=== PATIENT | male | born 2000 | race Caucasian/White ===

== ENCOUNTER 2021-08-20 15:11 | Emergency (ER) | payer OTHER ==
[~2021-08-20] VITALS: Ht 188 cm; Wt 65.9 kg
[2021-08-20 15:25] VITALS: TEMP 99
[2021-08-20 15:50] LABS: COLLECTION METHOD CLEAN CATCH
[2021-08-20 16:00] LABS: MUCOUS Present (NOT PRESENT); PH 6 (5-8); SQUAMOUS EPITHELIAL 0-2 /hpf (0-10); URINE APPEARANCE Clear (CLEAR/HAZY); URINE BACTERIA Rare /hpf (NONE SEEN); URINE BILIRUBIN Negative (NEGATIVE); URINE BLOOD Negative (NEGATIVE); URINE COLOR Yellow (YELLOW); URINE GLUCOSE Negative (NEGATIVE); URINE KETONE Negative (NEGATIVE); URINE LEUKOCYTE ESTERASE Negative (NEGATIVE); URINE NITRATE Negative (NEGATIVE); URINE PROTEIN(semi-quant) Negative (NEGATIVE); URINE RBC 0-2 /hpf (0-2); URINE UROBILINOGEN Negative (NEGATIVE)
[2021-08-20] MEDS ORDERED: DOXYCYCLINE 10100 MG PO (17:10)
[2021-08-20 17:26] VITALS: BP 125/84; PULSE 78
== END 2021-08-20 17:26 | disposition home or self-care (01) ==
LOC: COL.ER 15:11
PROVIDERS: Family Medicine
DX: N45.1 Epididymitis (principal)